=== PATIENT | female | born 1995 | race Caucasian/White ===

== ENCOUNTER 2021-11-01 20:10 | Observation (INO) ==
[2021-11-01 11:58] LABS: Basophils % 0.4 %; Eosinophils # 0.1 K/mcL (0.0-0.6); Hematocrit 32.3 % (35.3-44.9); Immature Granulocytes % 1.3 % (0-4); Lymphocytes # 1.8 K/mcL (0.6-4.6); Lymphocytes % 16.3 %; Mean Corpuscular HGB Conc 34.1 g/dL (31.6-35.5); Mean Corpuscular Volume 93.9 fL (83.0-100.0); Mean Platelet Volume 9.7 fL (9.4-12.4); Monocytes # 0.8 K/mcL (0.0-1.3); Monocytes % 7.2 %; Platelet Count 205 K/mcL (140-400); Red Blood Count 3.44 M/mcL (3.82-4.97); Red Cell Distribution Width 13.1 % (11.5-14.5); Segmented Neutrophils % 73.8 %; White Blood Count 10.9 K/mcL (4.3-11.1)
[2021-11-01 12:24] LABS: Alanine Aminotransferase 7 Units/L (7-52); Albumin 3.5 g/dL (3.5-5.7); Albumin/Globulin Ratio 1.1 (1.1-2.2); Alkaline Phosphatase 55 Units/L (34-104); Aspartate Amino Transferase 10 Units/L (13-39); BUN/Creatinine Ratio 13 (6-26); Bilirubin,Total 0.3 mg/dL (0.3-1.0); Blood Urea Nitrogen 6 mg/dL (6-20); Calcium 8.6 mg/dL (8.6-10.3); Carbon Dioxide 23 mEq/L (23-29); Chloride 108 mEq/L (98-107); Globulin 3.1 g/dL (2.4-3.5); Glucose 108 mg/dL (70-105); Osmolality,Calculated 282 (280-300); Potassium 3.5 mEq/L (3.5-5.1); Sodium 137 mEq/L (136-145); Total Protein 6.6 g/dL (6.4-8.9)
[2021-11-01 16:00] LABS: Magnesium 1.8 mg/dL (1.6-2.6); Phosphorous 3.9 mg/dL (2.7-4.5); Thyroid Stimulating Hormone 2.195 mcIU/mL (0.340-5.600)
[2021-11-01 16:09] LABS: Folate 21.1 ng/mL (3.0-16.0)
[2021-11-01 18:58] LABS: Bacteria,Urine Few per hpf (None-Few); Bilirubin,Urine Negative (Negative); Blood,Urine Negative (Negative); Clarity,Urine Turbid (Clear); Color,Urine Light-Yellow (Yellow); Glucose,Urine (UA) Normal (Normal); Ketones,Urine Negative (Negative); Leukocyte Esterase,Urine Negative (Negative); Mucus,Urine Few per lpf (None-Few); Nitrite,Urine Negative (Negative); PH,Urine 7.5 pH Units (5.0-8.0); Protein,Urine Negative (Neg-Trace); RBC,Urine 0-3 per hpf (0-3); Specific Gravity,Urine 1.015 (1.010-1.025); Squamous Epithelial Cell,Urine Few per hpf (None-Few); Urobilinogen,Urine Normal (Normal); WBC,Urine 0-3 per hpf (0-3)
[~2021-11-01 20:10] MED LIST: Ringers Solution, Lactated 1,000 ML IVC ONE
[2021-11-01] MEDS ORDERED: Acetaminophen 325 MG TABLET PO PRN (21:23)
[2021-11-01] MEDS: Ringers Solution, Lactated 1,000 ML IVC SCH (22:14)
[2021-11-02] MEDS: Ringers Solution, Lactated 1,000 ML IVC SCH (09:57)
== END 2021-11-02 12:33 | disposition home or self-care (01) ==
LOC: 1NENULAB → 1NENUOBS 20:10
PROVIDERS: ADMIT Obstetrics & Gynecology; ATTEND Obstetrics & Gynecology

== ENCOUNTER 2022-01-20 08:02 | Inpatient (IN) ==
[2022-01-20] MEDS ORDERED: Naloxone 0.4 MG/ML INJ IVP PRN (09:10)
[2022-01-20] MEDS ORDERED: miSOPROStoL 25 MCG TABLET PO PRN (09:10)
[2022-01-20] MEDS ORDERED: Famotidine 20 MG/2 ML VIAL IVP PRN (09:10)
[2022-01-20] MEDS ORDERED: Metoclopramide 10 MG/2 ML VIAL IVP PRN (09:10)
[2022-01-20] MEDS ORDERED: Ringers Solution, Lactated 1,000 ML IVC SCH (09:15)
[2022-01-20 09:32] LABS: Basophils # 0.1 K/mcL (0.0-0.2); Basophils % 0.6 %; Eosinophils # 0.1 K/mcL (0.0-0.6); Eosinophils % 1.2 %; Hematocrit 34.5 % (35.3-44.9); Hemoglobin 11.8 g/dL (11.5-15.4); Immature Granulocytes % 0.9 % (0-4); Lymphocytes # 2.7 K/mcL (0.6-4.6); Lymphocytes % 24.3 %; Mean Corpuscular HGB Conc 34.2 g/dL (31.6-35.5); Mean Corpuscular Hemoglobin 31.2 pg (28.0-33.3); Mean Corpuscular Volume 91.3 fL (83.0-100.0); Mean Platelet Volume 9.9 fL (9.4-12.4); Monocytes # 0.9 K/mcL (0.0-1.3); Monocytes % 7.9 %; Neutrophils # 7.4 K/mcL (1.6-8.9); Platelet Count 192 K/mcL (140-400); Red Blood Count 3.78 M/mcL (3.82-4.97); Red Cell Distribution Width 13.9 % (11.5-14.5); Segmented Neutrophils % 65.1 %; White Blood Count 11.3 K/mcL (4.3-11.1)
[2022-01-20 10:06] LABS: Amphetamine Screen,Urine Negative ng/mL (Cutoff=1000); Barbiturate Screen,Urine Negative ng/mL (Cutoff=200); Benzodiazepines Screen,Urine Negative ng/mL (Cutoff=200); Cannabinoid Screen,Urine Negative ng/mL (Cutoff = 50); Cocaine Screen,Urine Negative ng/mL (Cutoff= 300); Opiate Screen,Urine Negative ng/mL (Cutoff=300); Phencyclidine Screen,Urine Negative ng/mL (Cutoff=25)
[2022-01-20] MEDS ORDERED: *HR* Nalbuphine 10 MG/ML AMPUL ONE (10:53)
[2022-01-20] MEDS ORDERED: *HR* Nalbuphine 10 MG/ML AMPUL IV PRN (10:55)
[2022-01-20] MEDS ORDERED: EPHEDrine sulfate 50 MG/10 ML VIAL IVP PRN (12:27)
[2022-01-20] MEDS ORDERED: Epidural Premix (fent/bupiv) 110 ML EP SCH (12:30)
[2022-01-20] MEDS ORDERED: Epidural Premix (fent/bupiv) 110 ML EP ONE (12:33)
[2022-01-20] MEDS ORDERED: Ondansetron 4 MG/2 ML VIAL ONE (13:19)
[2022-01-20] MEDS ORDERED: Oxytocin 30 UNIT/503 ML BAG IVC SCH ×2 (15:15→21:47)
[2022-01-20] MEDS ORDERED: Ondansetron 4 MG/2 ML VIAL IVP SCH (18:00)
[2022-01-20] MEDS ORDERED: Rho Immune Globulin 1,500 UNIT SYRINGE IM PRN (21:47)
[2022-01-20] MEDS ORDERED: Ondansetron ODT 4 MG TAB.RAPDIS SL PRN (21:47)
[2022-01-20] MEDS ORDERED: Measles/Mumps/Rubella Vacc 0.5 ML VIAL SQ PRN (21:47)
[2022-01-20] MEDS ORDERED: Lanolin 7 G OINT...G. TP PRN (21:47)
[2022-01-20] MEDS ORDERED: Benzocaine/Menthol 56 GM AEROSOL SPRAY TP PRN (21:47)
[2022-01-20] MEDS ORDERED: hydrOXYzine pamoate 25 MG CAPSULE PO PRN (21:54)
[2022-01-20] MEDS: Ibuprofen 600 MG TABLET PO SCH (22:05)
[2022-01-20] MEDS: Acetaminophen 325 MG TABLET PO SCH (23:04)
[2022-01-21 03:39] VITALS: O2SAT 98
[2022-01-21] MEDS: Ibuprofen 600 MG TABLET PO SCH (03:46)
[2022-01-21 03:52] LABS: Basophils # 0.1 K/mcL (0.0-0.2); Basophils % 0.5 %; Eosinophils # 0.1 K/mcL (0.0-0.6); Eosinophils % 0.7 %; Hematocrit 32.2 % (35.3-44.9); Hemoglobin 11.2 g/dL (11.5-15.4); Immature Granulocytes % 0.6 % (0-4); Lymphocytes # 2.3 K/mcL (0.6-4.6); Lymphocytes % 18.6 %; Mean Corpuscular HGB Conc 34.8 g/dL (31.6-35.5); Mean Corpuscular Hemoglobin 31.5 pg (28.0-33.3); Mean Corpuscular Volume 90.7 fL (83.0-100.0); Mean Platelet Volume 9.9 fL (9.4-12.4); Monocytes # 1.2 K/mcL (0.0-1.3); Monocytes % 9.8 %; Neutrophils # 8.6 K/mcL (1.6-8.9); Platelet Count 162 K/mcL (140-400); Red Blood Count 3.55 M/mcL (3.82-4.97); Red Cell Distribution Width 13.5 % (11.5-14.5); Segmented Neutrophils % 69.8 %; White Blood Count 12.4 K/mcL (4.3-11.1)
[2022-01-21 07:35] VITALS: BP 93/49; PULSE 66; TEMP 98.2
[2022-01-21] MEDS: Acetaminophen 325 MG TABLET PO SCH (07:39)
[2022-01-21] MEDS ORDERED: NON-FORMULARY MEDICATION 1 EACH EACH (Prenatal Vitamin Tablet 1 TAB) PO SCH (09:00)
[2022-01-21] MEDS ORDERED: NON-FORMULARY MEDICATION 1 EACH EACH (Ferrous Sulfate 325 MG) PO SCH (09:00)
[2022-01-21] MEDS ORDERED: Prenatal Vit/FA 1 EACH TABLET PO SCH (09:00)
== END 2022-01-21 13:54 | disposition home or self-care (01) | DRG 560 ==
LOC: 1NENULAB 08:02 → 1NENUOBS 21:47
PROVIDERS: ADMIT Student in an Organized Health Care Education/Training Program; ATTEND Student in an Organized Health Care Education/Training Program